=== PATIENT | male | born 2000 | race Caucasian/White ===

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

== ENCOUNTER 2020-03-02 11:35 | Emergency (ER) | payer MEDICAID ==
[2020-03-02] MEDS ORDERED: ACETAMINOPHEN 325 MG TABLET PO ONE (11:47)
[2020-03-02] MEDS ORDERED: DIPH/PERTUSS(ACELL)/TETANUS VAC/PF 0.5 ML SYR (>=10YO) IM ONE (11:47)
--- NOTE | 2020-03-02 11:49 | ER Document Report ---
ED Medical Screen (RME) - General Chief Complaint: Laceration Stated Complaint: ARM LACERATION Time Seen by Provider: 03/02/20 11:47 Mode of Arrival: Wheelchair Information source: Patient Notes: 19-year-old male presented to ED for laceration to his left wrist approximately 2 to 2-1/2 cm long very irregular. He states he was hitting a 2 level 4 with his hands and it hit the underpinning of the trailer slicing his arm. He states he did not get his tetanus in eighth grade like most people do. He states he smokes 1/2 pack/day drinks weekly and does not use any illicit drugs. States he does not have any past medical history except for he did come into the emergency room for over he did 1 day. He is alert oriented respirations regular nonlabored speaking in full sentences. I have greeted and performed a rapid initial assessment of this patient. A comprehensive ED assessment and evaluation of the patient, analysis of test results and completion of medical decision making process will be conducted by an additional ED providers. - Related Data Allergies/Adverse Reactions: No Known Allergies Allergy (Verified 11/27/19 17:16) Past Medical History - Social History Chew tobacco use (# tins/day): No Frequency of alcohol use: Occasional Drug Abuse: None - Immunizations Immunizations up to date: Yes Physical Exam - Vital signs Vitals: Temp Pulse Resp BP 98.1 F 99 H 22 111/51 L 03/02/20 11:43 03/02/20 11:43 03/02/20 11:43 03/02/20 11:43 Course - Vital Signs Vital signs: Temp Pulse Resp BP Pulse Ox 98.1 F 99 H 22 111/51 L 03/02/20 11:43 03/02/20 11:43 03/02/20 11:43 03/02/20 11:43
--- NOTE | 2020-03-02 12:42 | RADIOLOGY REPORT (SQ) ---
EXAM DESCRIPTION: WRIST LEFT 3 VIEWS IMAGES COMPLETED DATE/TIME: 03/02/2020 12:26 pm REASON FOR STUDY: Laceration left wrist on a trailer under pending COMPARISON: None. NUMBER OF VIEWS: Three views. TECHNIQUE: AP, lateral, and oblique radiographic images acquired of the left wrist. LIMITATIONS: None. FINDINGS: MINERALIZATION: Normal. BONES: No acute fracture or dislocation. No worrisome bone lesions. Normal alignment. SOFT TISSUES: No soft tissue swelling. No foreign body. OTHER: No other significant finding. IMPRESSION: No evidence of acute bony abnormality. No radiopaque foreign body. TECHNICAL DOCUMENTATION: JOB ID: [id number] 2010 [employer]- All Rights Reserved Reading location - IP/workstation name: [email or web address]
[2020-03-02] MEDS ORDERED: HYDROCODONE/ACETAMINOPHEN 5-325 MG TABLET PO ONE (13:59)
[2020-03-02] MEDS ORDERED: LIDOCAINE 1%/EPINEPHRINE INJ 20 ML VIAL INJ ONE (13:59)
--- NOTE | 2020-03-02 14:03 | ER Document Report ---
HPI - HPI Patient complains to provider of: wrist lac Time Seen by Provider: 03/02/20 11:47 Onset: Just prior to arrival Onset/Duration: Sudden Quality of pain: Achy Pain Level: 3 Context: Patient was working on metal underpinning and his arm slipped and he cut his wri st on the metal. Patient tetanus was updated in triage. Patient is right handed. Associated Symptoms: Other - Wrist laceration Exacerbated by: Movement Relieved by: Denies Similar symptoms previously: No Recently seen / treated by doctor: No - ROS ROS below otherwise negative: Yes Systems Reviewed and Negative: Yes All other systems reviewed and negative - CONSTITUTIONAL Constitutional: DENIES: Fever, Chills - MUSCULOSKELETAL Musculoskeletal: REPORTS: Extremity pain - DERM Skin Problems: Laceration Past Medical History - General Information source: Patient - Social History Smoking Status: Current Every Day Smoker Chew tobacco use (# tins/day): No Frequency of alcohol use: Occasional Drug Abuse: None Occupation: None Lives with: Family Family History: Reviewed & Not Pertinent - Medical History Medical History: Negative Surgical Hx: Negative - Immunizations Immunizations up to date: Yes Vertical Provider Document - CONSTITUTIONAL Agree With Documented VS: Yes Exam Limitations: No Limitations General Appearance: WD/WN, No Apparent Distress - HEENT HEENT: Atraumatic, Normocephalic - NECK Neck: Normal Inspection - RESPIRATORY Respiratory: No Respiratory Distress - CARDIOVASCULAR Pulses: Normal: Radial - MUSCULOSKELETAL/EXTREMETIES Musculoskeletal/Extremeties: MAEW, FROM - NEURO Level of Consciousness: Awake, Alert, Appropriate Motor/Sensory: No Motor Deficit, No Sensory Deficit - DERM Integumentary: Warm, Dry, Laceration - 3.5 cm irregular laceration to ulnar aspect of right wrist, bleeding controlled at this time Course - Vital Signs Vital signs: Temp Pulse Resp BP Pulse Ox 98.1 F 99 H 22 111/51 L 03/02/20 11:43 03/02/20 11:43 03/02/20 11:43 03/02/20 11:43 - Diagnostic Test Radiology reviewed: Reports reviewed Procedures - Laceration/Wound Repair Right Wrist Wound length (cm): 3.5 Wound's Depth, Shape: Irregular Laceration pre-procedure: Shur-Clens applied Anesthetic type: 1% Lidocaine w/epi Wound explored: Clean Wound Repaired With: Sutures Suture Size/Type: 5:0, Nylon Number of Sutures: 7 Layer Closure?: No Post-procedure wound care: Sterile dressing applied Post-procedure NV exam normal: Yes Complications: No Adult Front & Back picture: 1 - lac Discharge - Discharge Clinical Impression: Laceration of right wrist Qualifiers: Encounter type: initial encounter Qualified Code(s): S61.511A - Laceration without foreign body of right wrist, initial encounter Condition: Stable Disposition: HOME, SELF-CARE Instructions: Acetaminophen, Use of Kibr-[id number]-[id number] Ibuprofen (OM), Lacerat ion Care ([facility]), Tetanus Immunization Given ([facility]) Additional Instructions: Return immediately for any new or worsening symptoms Followup with your primary care provider, call tomorrow to make a followup appointment Suture removal in 12 days Referrals: [facility] [Provider Group] - Follow up as needed
[2020-03-02 16:06] VITALS: BP 118/64
== END 2020-03-02 16:06 | disposition home or self-care (01) ==
LOC: ER 11:35
DX: S61.512A Laceration without foreign body of left wrist, initial encounter (principal); W26.8XXA Contact with other sharp object(s), not elsewhere classified, initial encounter; F17.210 Nicotine dependence, cigarettes, uncomplicated; Z23 Encounter for immunization
CPT/HCPCS: 99283; 90471; 73110; 90715; 12002; J3490 ×2